=== PATIENT | female | born 1950 | race Asian ===

== ENCOUNTER 2017-05-25 20:13 | Emergency (ER) | payer MEDICARE, MEDICAID ==
[~2017-05-25] VITALS: Ht 149.9 cm; Wt 66.0 kg
[~2017-05-25 20:13] MED LIST: AMLO10TA2 PO; ASPI-621 PO; ATOR10TA9 PO; ATOR40TA78 PO; BENZ100C17 PO; CARV-39 PO; CARV12.52 PO; CARV3.122 PO; CEFD300C37 PO; CINA90TA PO; CLOP75TA PO; DOXY100T PO; FENO145T13 PO; FLUT1BLS INH; FURO-93 PO; GABA-826 PO; INSU100I18 SQ-INSULIN; INSU100I28 SQ-INSULIN; LOSA100T6 PO; LOSA25TA5 PO; MECL12.5 PO; SEVE800T8 PO; VORI200T PO; VORI200T2 PO
[2017-05-25] MEDS ORDERED: SODIUM CHLORIDE FLUSH 10ML SYR IVF ONE (20:30)
[2017-05-25 20:49] LABS: HEMATOCRIT 33.2 % (34.6-47.8); HEMOGLOBIN 11.3 g/dL (11.7-16.4); WHITE BLOOD COUNT 8.5 x10^3/uL (3.4-10)
[2017-05-25 21:01] LABS: ASPARTATE AMINO TRANSFERASE 25 U/L (15-37); BLOOD UREA NITROGEN 27 mg/dL (7-18)
[2017-05-25 21:54] LABS: IS PT STATUS REG ER OR PRE ER? YES
[2017-05-25 23:19] VITALS: BP 106/50
== END 2017-05-25 23:22 | disposition home or self-care (01) ==
LOC: ED 22:00
DX: K80.20 Calculus of gallbladder without cholecystitis without obstruction (principal); I13.2 Hypertensive heart and chronic kidney disease with heart failure and with stage 5 chronic kidney disease, or end stage renal disease; E11.22 Type 2 diabetes mellitus with diabetic chronic kidney disease; N18.6 End stage renal disease; I50.9 Heart failure, unspecified; Z99.2 Dependence on renal dialysis; E11.649 Type 2 diabetes mellitus with hypoglycemia without coma; E11.40 Type 2 diabetes mellitus with diabetic neuropathy, unspecified; I25.10 Atherosclerotic heart disease of native coronary artery without angina pectoris; E66.9 Obesity, unspecified; Z91.011 Allergy to milk products; Z91.040 Latex allergy status
CPT/HCPCS: 36415; 71010; 76700; 80053; 83690; 84484; 85025; 93005; 99285

== ENCOUNTER 2017-09-13 15:56 | Emergency (ER) | payer MEDICARE, MEDICAID ==
[~2017-09-13] VITALS: Ht 149.9 cm; Wt 66.0 kg
[~2017-09-13 15:56] MED LIST changes: +BENZ-17 PO; -BENZ100C17 PO
[2017-09-13 16:40] LABS: HEMATOCRIT 34.1 % (34.6-47.8); WHITE BLOOD COUNT 6.3 x10^3/uL (3.4-10)
[2017-09-13 16:45] LABS: BLOOD UREA NITROGEN 70 mg/dL (7-18)
[2017-09-13 18:35] VITALS: BP 141/69
== END 2017-09-13 18:37 | disposition home or self-care (01) ==
LOC: ED 17:23
DX: R55 Syncope and collapse (principal); I13.2 Hypertensive heart and chronic kidney disease with heart failure and with stage 5 chronic kidney disease, or end stage renal disease; E11.22 Type 2 diabetes mellitus with diabetic chronic kidney disease; N18.6 End stage renal disease; I50.9 Heart failure, unspecified; Z99.2 Dependence on renal dialysis; Z91.040 Latex allergy status
CPT/HCPCS: 36415; 71010; 80048; 82040; 85025; 93005; 99285

== ENCOUNTER 2017-12-07 13:08 | Inpatient (IN) | payer MEDICARE, MEDICAID ==
[~2017-12-07] VITALS: Ht 149.9 cm; Wt 61.1 kg
[2017-12-07] MEDS ORDERED: SODIUM CHLORIDE FLUSH 10ML SYR IVF ONE (13:30)
[2017-12-07] MEDS ORDERED: CEFTRIAXONE PMX 1GM/50ML 50 ML IVPB ONE (13:30)
[2017-12-07] MEDS ORDERED: VANCOMYCIN PER PHARMACY MC ONE (13:30)
[2017-12-07] MEDS ORDERED: VANCOMYCIN 1,200 MG in SODIUM CHLORIDE 0.9% 250 ML IV ONE (14:00)
[2017-12-07 14:41] LABS: BASOPHILS # (AUTO) 0.03 x10^3/uL (0-0.1); BASOPHILS % (AUTO) 0 % (0-1); EOSINOPHILS # (AUTO) 0.08 x10^3/uL (0-0.4); EOSINOPHILS % (AUTO) 1 % (1-7); LYMPHOCYTES # (AUTO) 0.76 x10^3/uL (1-3.4); LYMPHOCYTES % (AUTO) 5 % (22-44); MD NO; MEAN CORPUSCULAR HGB CONC 34.4 g/dL (32.4-35.8); MEAN CORPUSCULAR VOLUME 95.8 fL (80-100); MEAN PLATELET VOLUME 9.2 fL (7.4-10.4); MONOCYTES # (AUTO) 1.04 x10^3/uL (0.2-0.8); MONOCYTES % (AUTO) 7 % (2-9); NEUTROPHILS # (AUTO) 12.82 x10^3/uL (1.8-6.8); NEUTROPHILS % (AUTO) 87 % (42-75); PLATELET COUNT 142 x10^3/uL (130-400); RED CELL DISTRIBUTION WIDTH 14.9 % (9.6-15.2)
[2017-12-07] MEDS ORDERED: PREG50CA PO ×2 (14:42)
[2017-12-07 14:51] LABS: ALBUMIN 3.3 g/dL (3.4-5.0); ANION GAP 13 mmol/L (5-15); CALCIUM 9.4 mg/dL (8.5-10.1); CHLORIDE 94 mmol/L (98-107)
[2017-12-07 14:57] LABS: ALANINE AMINOTRANSFERASE 30 U/L (12-78); ALKALINE PHOSPHATASE 91 U/L (45-117); BILIRUBIN,TOTAL 0.7 mg/dL (0.2-1.0); CREATININE 8.48 mg/dL (0.55-1.02); TOTAL PROTEIN 8.4 g/dL (6.4-8.2); TROPONIN I < 0.015 ng/mL (0.000-0.045)
[2017-12-07] MEDS ORDERED: CEFTRIAXONE PMX 1GM/50ML 50 ML ONE (16:28)
[2017-12-07] MEDS ORDERED: MECLIZINE 12.5 MG TABLET PO PRN (19:30)
[2017-12-07] MEDS ORDERED: POLYETHYLENE GLYCOL 17 GM PACKET PO PRN (19:30)
[2017-12-07] MEDS ORDERED: CEFTRIAXONE PMX 1GM/50ML 50 ML IV SCH (19:30)
[2017-12-07] MEDS ORDERED: ONDANSETRON 2MG/ML, 2ML IVPush PRN (19:30)
[2017-12-07] MEDS ORDERED: BISACODYL 10 MG SUPP PR PRN (19:30)
[2017-12-07 19:47] LABS: HEMOGLOBIN A1C 7.9 % (4.2-6.3)
[2017-12-07 20:00] VITALS: BP 137/65
[2017-12-07] MEDS: INSULIN LISPRO 100 UNITS/ML, PEN MEDIUM DOSE SS SQ-INSULIN SCH (21:00)
[2017-12-07] MEDS ORDERED: TEMPLATE NON-FORMULARY MED. (Insulin Aspart (Novolog) 0 UNITS) SQ-INSULIN SCH (21:00)
[2017-12-07] MEDS: HEPARIN 5,000 UNITS/ML, 1ML SQ SCH (22:16)
[2017-12-07] MEDS: ATORVASTATIN 40 MG TABLET PO SCH (22:17)
[2017-12-07] MEDS: PREGABALIN 25 MG CAPSULE PO SCH (22:17)
[2017-12-07] MEDS: CINACALCET 30 MG TABLET PO SCH (22:17)
[2017-12-07] MEDS: SEVELAMER CARBONATE 800MG TAB PO SCH (22:17)
[2017-12-07 22:50] VITALS: BP 137/65
[2017-12-07] MEDS: SODIUM CHLORIDE FLUSH 10ML SYR IVF SCH (23:30)
[2017-12-07] MEDS: AZITHROMYCIN 500 MG in SODIUM CHLORIDE 0.9% 250 ML IV SCH (23:30)
[2017-12-08] MEDS: GUAIFENESIN/DM 200-20MG, 10ML UDC PO PRN ×2 (00:23→09:10)
[2017-12-08] MEDS: ACETAMINOPHEN 325 MG TABLET PO PRN ×2 (01:22→13:44)
[2017-12-08 01:57] LABS: CULTURE INDICATED? YES; MICROSCOPIC INDICATED
[2017-12-08 02:00] VITALS: BP 124/71
[2017-12-08 02:05] LABS: AMPHETAMINE SCREEN, URINE Negative (Negative); BARBITURATE SCREEN, URINE Negative (Negative); BENZODIAZEPINE SCREEN, URINE Negative (Negative); CANNABINOID SCREEN, URINE Negative (Negative); COCAINE SCREEN, URINE Negative (Negative); METHADONE SCREEN, URINE Negative (Negative); OPIATE SCREEN, URINE Negative (Negative)
[2017-12-08 05:34] LABS: CHLORIDE 96 mmol/L (98-107)
[2017-12-08 05:38] LABS: BASOPHILS # (AUTO) 0.02 x10^3/uL (0-0.1); BASOPHILS % (AUTO) 0 % (0-1); EOSINOPHILS % (AUTO) 0 % (1-7); LYMPHOCYTES # (AUTO) 1.11 x10^3/uL (1-3.4); LYMPHOCYTES % (AUTO) 10 % (22-44); MD NO; MEAN CORPUSCULAR HEMOGLOBIN 33.7 pg (27.0-34.8); MEAN CORPUSCULAR HGB CONC 34.8 g/dL (32.4-35.8); MEAN CORPUSCULAR VOLUME 96.6 fL (80-100); MEAN PLATELET VOLUME 10.2 fL (7.4-10.4); MONOCYTES # (AUTO) 1.04 x10^3/uL (0.2-0.8); MONOCYTES % (AUTO) 9 % (2-9); NEUTROPHILS % (AUTO) 81 % (42-75); PLATELET COUNT 136 x10^3/uL (130-400); RED BLOOD COUNT 2.96 x10^6/uL (3.82-5.3); RED CELL DISTRIBUTION WIDTH 15.5 % (9.6-15.2)
[2017-12-08 05:42] LABS: ALANINE AMINOTRANSFERASE 25 U/L (12-78); ALBUMIN 2.9 g/dL (3.4-5.0); ALKALINE PHOSPHATASE 75 U/L (45-117); ANION GAP 16 mmol/L (5-15); BILIRUBIN,TOTAL 0.7 mg/dL (0.2-1.0); CALCIUM 8.4 mg/dL (8.5-10.1); TOTAL PROTEIN 7.2 g/dL (6.4-8.2)
[2017-12-08] MEDS: HEPARIN 5,000 UNITS/ML, 1ML SQ SCH ×3 (05:50→21:44)
[2017-12-08 08:28] VITALS: BP 107/61
[2017-12-08] MEDS ORDERED: CARVEDILOL 12.5 MG TABLET PO SCH (09:00)
[2017-12-08] MEDS ORDERED: AMLODIPINE 5 MG TABLET PO SCH (09:00)
[2017-12-08] MEDS: SODIUM CHLORIDE FLUSH 10ML SYR IVF SCH ×2 (09:00→21:43)
[2017-12-08] MEDS ORDERED: LOSARTAN 50MG TABLET PO SCH (09:00)
[2017-12-08] MEDS: SENNA/DOCUSATE TABLET PO SCH (09:00)
[2017-12-08] MEDS: SEVELAMER CARBONATE 800MG TAB PO SCH ×3 (09:04→21:44)
[2017-12-08] MEDS: CINACALCET 30 MG TABLET PO SCH ×3 (09:04→21:44)
[2017-12-08] MEDS: FENOFIBRATE 145 MG TABLET PO SCH (09:04)
[2017-12-08] MEDS: PREGABALIN 100 MG CAPSULE PO SCH (09:05)
[2017-12-08] MEDS: INSULIN LISPRO 100 UNITS/ML, PEN MEDIUM DOSE SS SQ-INSULIN SCH ×4 (09:06→21:45)
[2017-12-08 14:22] VITALS: BP 95/56
[2017-12-08] MEDS: CEFTRIAXONE 1,000 MG in SODIUM CHLORIDE 0.9% 50 ML IV SCH (16:30)
[2017-12-08 20:00] VITALS: BP 101/57
[2017-12-08] MEDS: ATORVASTATIN 40 MG TABLET PO SCH (21:44)
[2017-12-08] MEDS: PREGABALIN 25 MG CAPSULE PO SCH (21:44)
[2017-12-08] MEDS: AZITHROMYCIN 500 MG in SODIUM CHLORIDE 0.9% 250 ML IV SCH (23:52)
[2017-12-09] MEDS: ACETAMINOPHEN 325 MG TABLET PO PRN ×2 (01:08→20:50)
[2017-12-09 02:00] VITALS: BP 94/54
[2017-12-09] MEDS: HEPARIN 5,000 UNITS/ML, 1ML SQ SCH ×3 (05:20→20:52)
[2017-12-09 05:59] LABS: ALBUMIN 2.8 g/dL (3.4-5.0); ANION GAP 16 mmol/L (5-15); CALCIUM 6.7 mg/dL (8.5-10.1); CHLORIDE 94 mmol/L (98-107)
[2017-12-09 06:02] LABS: ALANINE AMINOTRANSFERASE 62 U/L (12-78); ALKALINE PHOSPHATASE 80 U/L (45-117); BILIRUBIN,TOTAL 1.1 mg/dL (0.2-1.0)
[2017-12-09] MEDS: INSULIN LISPRO 100 UNITS/ML, PEN MEDIUM DOSE SS SQ-INSULIN SCH ×4 (07:00→20:28)
[2017-12-09 08:01] LABS: BASOPHILS # (AUTO) 0.01 x10^3/uL (0-0.1); BASOPHILS % (AUTO) 0 % (0-1); EOSINOPHILS # (AUTO) 0.18 x10^3/uL (0-0.4); EOSINOPHILS % (AUTO) 2 % (1-7); LYMPHOCYTES % (AUTO) 11 % (22-44); MD NO; MEAN CORPUSCULAR HEMOGLOBIN 32.9 pg (27.0-34.8); MEAN CORPUSCULAR HGB CONC 34.3 g/dL (32.4-35.8); MEAN CORPUSCULAR VOLUME 95.9 fL (80-100); MEAN PLATELET VOLUME 10.2 fL (7.4-10.4); MONOCYTES % (AUTO) 9 % (2-9); NEUTROPHILS % (AUTO) 78 % (42-75); PLATELET COUNT 126 x10^3/uL (130-400); RED BLOOD COUNT 2.78 x10^6/uL (3.82-5.3); RED CELL DISTRIBUTION WIDTH 15.2 % (9.6-15.2)
[2017-12-09] MEDS: PREGABALIN 100 MG CAPSULE PO SCH (09:00)
[2017-12-09] MEDS: SENNA/DOCUSATE TABLET PO SCH (09:00)
[2017-12-09] MEDS: SEVELAMER CARBONATE 800MG TAB PO SCH ×3 (09:00→20:51)
[2017-12-09] MEDS: CINACALCET 30 MG TABLET PO SCH ×3 (09:00→20:51)
[2017-12-09] MEDS: FENOFIBRATE 145 MG TABLET PO SCH (09:00)
[2017-12-09] MEDS: SODIUM CHLORIDE FLUSH 10ML SYR IVF SCH ×2 (09:00→20:50)
[2017-12-09] MEDS: CARVEDILOL 12.5 MG TABLET PO SCH (09:00)
[2017-12-09 15:22] VITALS: BP 120/55
[2017-12-09] MEDS: CEFTRIAXONE 1,000 MG in SODIUM CHLORIDE 0.9% 50 ML IV SCH (16:53)
[2017-12-09 18:39] VITALS: BP 131/63
[2017-12-09] MEDS: ATORVASTATIN 40 MG TABLET PO SCH (20:50)
[2017-12-09] MEDS: PREGABALIN 25 MG CAPSULE PO SCH (20:51)
[2017-12-09] MEDS ORDERED: AMLODIPINE 5 MG TABLET PO SCH (21:00)
[2017-12-09] MEDS ORDERED: LOSARTAN 50MG TABLET PO SCH ×2 (21:00)
[2017-12-09] MEDS: AZITHROMYCIN 500 MG in SODIUM CHLORIDE 0.9% 250 ML IV SCH (23:27)
[2017-12-10 00:33] VITALS: BP 104/56
[2017-12-10] MEDS: GUAIFENESIN/DM 200-20MG, 10ML UDC PO PRN (00:59)
[2017-12-10] MEDS: HEPARIN 5,000 UNITS/ML, 1ML SQ SCH ×2 (05:58→14:00)
[2017-12-10 06:10] LABS: CALCIUM 7.3 mg/dL (8.5-10.1)
[2017-12-10 06:14] LABS: ANION GAP 14 mmol/L (5-15); CALCIUM 7.3 mg/dL (8.5-10.1); CHLORIDE 95 mmol/L (98-107)
[2017-12-10 06:16] LABS: BASOPHILS # (AUTO) 0.02 x10^3/uL (0-0.1); BASOPHILS % (AUTO) 0 % (0-1); EOSINOPHILS # (AUTO) 0.22 x10^3/uL (0-0.4); EOSINOPHILS % (AUTO) 4 % (1-7); LYMPHOCYTES # (AUTO) 0.78 x10^3/uL (1-3.4); LYMPHOCYTES % (AUTO) 13 % (22-44); MD NO; MEAN CORPUSCULAR HEMOGLOBIN 32.5 pg (27.0-34.8); MEAN CORPUSCULAR HGB CONC 34.2 g/dL (32.4-35.8); MEAN CORPUSCULAR VOLUME 95.2 fL (80-100); MEAN PLATELET VOLUME 9.8 fL (7.4-10.4); MONOCYTES # (AUTO) 0.85 x10^3/uL (0.2-0.8); MONOCYTES % (AUTO) 14 % (2-9); NEUTROPHILS # (AUTO) 4.23 x10^3/uL (1.8-6.8); NEUTROPHILS % (AUTO) 69 % (42-75); PLATELET COUNT 143 x10^3/uL (130-400); RED BLOOD COUNT 3.06 x10^6/uL (3.82-5.3); RED CELL DISTRIBUTION WIDTH 14.9 % (9.6-15.2)
[2017-12-10] MEDS ORDERED: ARANESP 60 MCG/ML **ESRD SQ SCH (08:00)
[2017-12-10] MEDS: INSULIN LISPRO 100 UNITS/ML, PEN MEDIUM DOSE SS SQ-INSULIN SCH ×2 (08:12→12:21)
[2017-12-10] MEDS: CINACALCET 30 MG TABLET PO SCH (08:13)
[2017-12-10] MEDS: CARVEDILOL 12.5 MG TABLET PO SCH (08:13)
[2017-12-10] MEDS: PREGABALIN 100 MG CAPSULE PO SCH (08:13)
[2017-12-10] MEDS: FENOFIBRATE 145 MG TABLET PO SCH (08:13)
[2017-12-10] MEDS: SEVELAMER CARBONATE 800MG TAB PO SCH (08:14)
[2017-12-10] MEDS: SENNA/DOCUSATE TABLET PO SCH (08:14)
[2017-12-10] MEDS: SODIUM CHLORIDE FLUSH 10ML SYR IVF SCH (08:14)
[2017-12-10 08:40] LABS: % IRON SATURATION 21 % (20-55); IRON LEVEL 46 mcg/dL (50-170); TOTAL IRON BINDING CAPACITY 224 mcg/dL (250-450)
[2017-12-10 08:56] VITALS: BP 110/70
[2017-12-10] MEDS ORDERED: CEFTRIAXONE 1,000 MG in DEXTROSE 5% 50 ML IV SCH ×2 (09:03→16:30)
[2017-12-10] MEDS ORDERED: CEFD300C37 PO (13:45)
[2017-12-10] MEDS ORDERED: LOSA50TA2 PO (13:58)
[2017-12-10] MEDS ORDERED: CARV12.543 PO (13:58)
[2017-12-10 13:59] VITALS: BP 94/53
== END 2017-12-10 15:00 | disposition home or self-care (01) | DRG 871 ==
LOC: ED 13:34 → EDIP 16:18 → 4WST 18:36
PROVIDERS: ADMIT Internal Medicine; ATTEND Internal Medicine
PROC: 5A1D70Z Performance of Urinary Filtration, Intermittent, Less than 6 Hours Per Day (ICD-10-PCS; principal; 2017-12-09)
DX: A41.9 Sepsis, unspecified organism (principal); J96.01 Acute respiratory failure with hypoxia; I13.2 Hypertensive heart and chronic kidney disease with heart failure and with stage 5 chronic kidney disease, or end stage renal disease; J15.9 Unspecified bacterial pneumonia; E87.2 Acidosis; E11.22 Type 2 diabetes mellitus with diabetic chronic kidney disease; E11.42 Type 2 diabetes mellitus with diabetic polyneuropathy; I50.9 Heart failure, unspecified; E44.1 Mild protein-calorie malnutrition; N25.0 Renal osteodystrophy; N18.6 End stage renal disease; N25.81 Secondary hyperparathyroidism of renal origin; D64.9 Anemia, unspecified; D63.1 Anemia in chronic kidney disease; E78.5 Hyperlipidemia, unspecified; E83.39 Other disorders of phosphorus metabolism; R65.20 Severe sepsis without septic shock; Z99.2 Dependence on renal dialysis; Z68.27 Body mass index [BMI] 27.0-27.9, adult; Z91.040 Latex allergy status; Z91.018 Allergy to other foods; Z79.4 Long term (current) use of insulin; I25.2 Old myocardial infarction
CPT/HCPCS: 36415; 70450; 71045; 80048; 80053; 80307; 81001; 82140; 82306; 82310; 82962; 83036; 83540; 83550; 83605; 83735; 83970; 84100; 84484; 84550; 85025; 86704; 86706; 86803; 87040; 87070; 87086; 87205; 87340; 93005; 99285; J0456; J0696; J0882; J1644; J3370; J1815; J7050

== ENCOUNTER → 2018-02-21 | Outpatient (CLI) | payer MEDICARE, MEDICAID ==
[~2018-02-21] MED LIST changes: +CARV12.543 PO; -FENO145T13 PO; +FENO145T30 PO; +LOSA50TA2 PO; +PREG50CA PO
== END ==
LOC: RAD 10:55
PROVIDERS: ATTEND Family Medicine
DX: I51.7 Cardiomegaly (principal); J18.9 Pneumonia, unspecified organism
CPT/HCPCS: 71046

== ENCOUNTER 2018-07-24 16:00 | Inpatient (IN) | payer MEDICARE, MEDICAID ==
[~2018-07-24] VITALS: Ht 149.9 cm; Wt 64.8 kg
[~2018-07-24 16:00] MED LIST changes: -AMLO10TA2 PO; +AMLO10TA6 PO; -ASPI-621 PO; +ASPI81TA45 PO; -LOSA100T6 PO; +LOSA100T7 PO; -LOSA25TA5 PO; +LOSA25TA6 PO
[2018-07-24] MEDS ORDERED: methylPREDNISolone SOD SUCC 125 MG/2 ML IVP ONE (16:30)
[2018-07-24] MEDS ORDERED: methylPREDNISolone SOD SUCC 125 MG/2 ML ONE (16:33)
[2018-07-24 17:00] LABS: BASOPHILS # (AUTO) 0.02 x10^3/uL (0-0.1); BASOPHILS % (AUTO) 0 % (0-1); EOSINOPHILS # (AUTO) 0.41 x10^3/uL (0-0.4); EOSINOPHILS % (AUTO) 4 % (1-7); LYMPHOCYTES # (AUTO) 1.28 x10^3/uL (1-3.4); LYMPHOCYTES % (AUTO) 11 % (22-44); MD NO; MEAN CORPUSCULAR HEMOGLOBIN 34.4 pg (27.0-34.8); MEAN CORPUSCULAR HGB CONC 34.5 g/dL (32.4-35.8); MEAN CORPUSCULAR VOLUME 99.8 fL (80-100); MEAN PLATELET VOLUME 8.1 fL (7.4-10.4); MONOCYTES # (AUTO) 1.07 x10^3/uL (0.2-0.8); MONOCYTES % (AUTO) 9 % (2-9); NEUTROPHILS # (AUTO) 9.13 x10^3/uL (1.8-6.8); NEUTROPHILS % (AUTO) 77 % (42-75); PLATELET COUNT 209 x10^3/uL (130-400); RED BLOOD COUNT 3.13 x10^6/uL (3.82-5.3); RED CELL DISTRIBUTION WIDTH 14.4 % (9.6-15.2)
[2018-07-24 17:10] LABS: ALANINE AMINOTRANSFERASE 51 U/L (12-78); ALBUMIN 3.2 g/dL (3.4-5.0); ANION GAP 11 mmol/L (5-15); CALCIUM 9.8 mg/dL (8.5-10.1); CHLORIDE 94 mmol/L (98-107); CREATININE 5.16 mg/dL (0.55-1.02)
[2018-07-24 17:14] LABS: ALKALINE PHOSPHATASE 97 U/L (45-117); BILIRUBIN,TOTAL 0.6 mg/dL (0.2-1.0); TOTAL PROTEIN 8.8 g/dL (6.4-8.2)
[2018-07-24] MEDS ORDERED: GABA300C10 PO (18:27)
[2018-07-24] MEDS ORDERED: EMLA CREAM (18:27)
[2018-07-24] MEDS ORDERED: DIAZ2TAB3 PO (18:27)
[2018-07-24] MEDS ORDERED: CALC200T3 PO (18:27)
[2018-07-24] MEDS ORDERED: INSU100V8 SQ (18:27)
[2018-07-24] MEDS ORDERED: FOLI0.8T33 PO (18:27)
[2018-07-24] MEDS ORDERED: ERGO500017 PO (18:27)
[2018-07-24] MEDS ORDERED: AMLO10TA4 PO (18:27)
[2018-07-24] MEDS ORDERED: GUAIFENESIN/DM 200-20MG, 10ML UDC PO PRN (18:30)
[2018-07-24] MEDS ORDERED: MECLIZINE 12.5 MG TABLET PO PRN (18:30)
[2018-07-24] MEDS ORDERED: CEFTRIAXONE 1,000 MG in SODIUM CHLORIDE 0.9% 50 ML IVPB ONE (18:30)
[2018-07-24] MEDS ORDERED: POLYETHYLENE GLYCOL 17 GM PACKET PO PRN (18:30)
[2018-07-24] MEDS ORDERED: ONDANSETRON ODT 4 MG PO PRN (18:30)
[2018-07-24] MEDS ORDERED: SODIUM CHLORIDE FLUSH 10ML SYR IVF PRN (18:30)
[2018-07-24] MEDS ORDERED: BISACODYL 10 MG SUPP PR PRN (18:30)
[2018-07-24] MEDS ORDERED: CEFTRIAXONE PMX 1GM/50ML 50 ML ONE (18:31)
[2018-07-24 18:55] VITALS: BP 151/76
[2018-07-24 19:29] LABS: HEMOGLOBIN A1C 7.4 % (4.2-6.3)
[2018-07-24 19:39] VITALS: BP 151/76
[2018-07-24] MEDS: AZITHROMYCIN 500 MG in SODIUM CHLORIDE 0.9% 250 ML IV SCH (20:55)
[2018-07-24] MEDS: SODIUM CHLORIDE FLUSH 10ML SYR IVF SCH (20:56)
[2018-07-24] MEDS: LOSARTAN 50MG TABLET PO SCH (20:57)
[2018-07-24] MEDS: CINACALCET 30 MG TABLET PO SCH (20:58)
[2018-07-24] MEDS: ATORVASTATIN 40 MG TABLET PO SCH (20:59)
[2018-07-24] MEDS: HEPARIN 5,000 UNITS/ML, 1ML SQ SCH (20:59)
[2018-07-24] MEDS ORDERED: PREGABALIN 25 MG CAPSULE PO SCH (21:00)
[2018-07-24] MEDS ORDERED: TEMPLATE NON-FORMULARY MED. (Insulin Aspart (Novolog) 0 UNITS) SQ-INSULIN SCH (21:00)
[2018-07-24 21:01] LABS: RAPID INFLUENZA A Negative (Negative); RAPID INFLUENZA B Negative (Negative)
[2018-07-24] MEDS: INSULIN LISPRO 100 UNITS/ML, PEN MEDIUM DOSE SS SQ-INSULIN SCH (21:20)
[2018-07-25] MEDS: ACETAMINOPHEN 325 MG TABLET PO PRN (00:44)
[2018-07-25 01:22] VITALS: BP 119/67
[2018-07-25] MEDS: HEPARIN 5,000 UNITS/ML, 1ML SQ SCH ×3 (05:29→20:37)
[2018-07-25 06:33] LABS: BASOPHILS % (AUTO) 0 % (0-1); EOSINOPHILS % (AUTO) 0 % (1-7); LYMPHOCYTES % (AUTO) 6 % (22-44); MD NO; MEAN CORPUSCULAR HEMOGLOBIN 34.3 pg (27.0-34.8); MEAN CORPUSCULAR HGB CONC 34.6 g/dL (32.4-35.8); MEAN CORPUSCULAR VOLUME 99.2 fL (80-100); MEAN PLATELET VOLUME 8.6 fL (7.4-10.4); MONOCYTES # (AUTO) 0.19 x10^3/uL (0.2-0.8); MONOCYTES % (AUTO) 2 % (2-9); NEUTROPHILS # (AUTO) 8.64 x10^3/uL (1.8-6.8); NEUTROPHILS % (AUTO) 92 % (42-75); PLATELET COUNT 215 x10^3/uL (130-400); RED BLOOD COUNT 3.18 x10^6/uL (3.82-5.3); RED CELL DISTRIBUTION WIDTH 14.2 % (9.6-15.2)
[2018-07-25 06:38] LABS: ALANINE AMINOTRANSFERASE 43 U/L (12-78); ANION GAP 11 mmol/L (5-15); CALCIUM 8.9 mg/dL (8.5-10.1); CHLORIDE 92 mmol/L (98-107); CREATININE 7.37 mg/dL (0.55-1.02)
[2018-07-25 06:42] LABS: ALKALINE PHOSPHATASE 92 U/L (45-117); BILIRUBIN,TOTAL 0.6 mg/dL (0.2-1.0); TOTAL PROTEIN 8.4 g/dL (6.4-8.2); TROPONIN I 0.086 ng/mL (0.000-0.045)
[2018-07-25 07:29] VITALS: BP 109/63
[2018-07-25] MEDS: SEVELAMER CARBONATE 800MG TAB PO SCH ×3 (08:00→17:00)
[2018-07-25] MEDS: FENOFIBRATE 145 MG TABLET PO SCH (08:07)
[2018-07-25] MEDS: SENNA/DOCUSATE TABLET PO SCH (08:07)
[2018-07-25] MEDS: CARVEDILOL 3.125 MG TABLET PO SCH (08:07)
[2018-07-25] MEDS: CINACALCET 30 MG TABLET PO SCH ×2 (08:07→20:38)
[2018-07-25] MEDS: INSULIN LISPRO 100 UNITS/ML, PEN MEDIUM DOSE SS SQ-INSULIN SCH ×4 (08:08→20:58)
[2018-07-25] MEDS: SODIUM CHLORIDE FLUSH 10ML SYR IVF SCH ×2 (08:08→20:37)
[2018-07-25] MEDS ORDERED: PREGABALIN 100 MG CAPSULE PO SCH (09:00)
[2018-07-25] MEDS: GABAPENTIN 100 MG CAPSULE PO SCH ×3 (09:28→20:39)
[2018-07-25 11:49] LABS: TROPONIN I 0.059 ng/mL (0.000-0.045)
[2018-07-25 15:19] VITALS: BP 122/61
[2018-07-25] MEDS ORDERED: GABAPENTIN 100 MG PO SCH (16:00)
[2018-07-25] MEDS ORDERED: ERGOCALCIFEROL 50,000 UNIT CAPSULE PO SCH (16:00)
[2018-07-25] MEDS: CEFTRIAXONE PMX 1GM/50ML 50 ML IV SCH (18:09)
[2018-07-25] MEDS: AZITHROMYCIN 500 MG in SODIUM CHLORIDE 0.9% 250 ML IV SCH (20:37)
[2018-07-25] MEDS: ATORVASTATIN 40 MG TABLET PO SCH (20:38)
[2018-07-25 20:55] VITALS: BP_SYST 105; BP_SYST 111; BP_DIAS 55; BP_DIAS 68
[2018-07-25] MEDS: LOSARTAN 50MG TABLET PO SCH (20:57)
[2018-07-26 02:17] VITALS: BP 110/66
[2018-07-26] MEDS: HEPARIN 5,000 UNITS/ML, 1ML SQ SCH ×3 (04:54→21:21)
[2018-07-26 05:53] LABS: BASOPHILS # (AUTO) 0.05 x10^3/uL (0-0.1); BASOPHILS % (AUTO) 1 % (0-1); EOSINOPHILS # (AUTO) 0.14 x10^3/uL (0-0.4); EOSINOPHILS % (AUTO) 2 % (1-7); LYMPHOCYTES # (AUTO) 1.57 x10^3/uL (1-3.4); LYMPHOCYTES % (AUTO) 17 % (22-44); MD NO; MEAN CORPUSCULAR HEMOGLOBIN 34.2 pg (27.0-34.8); MEAN CORPUSCULAR HGB CONC 34.1 g/dL (32.4-35.8); MEAN CORPUSCULAR VOLUME 100.2 fL (80-100); MEAN PLATELET VOLUME 8.2 fL (7.4-10.4); MONOCYTES % (AUTO) 10 % (2-9); NEUTROPHILS # (AUTO) 6.86 x10^3/uL (1.8-6.8); NEUTROPHILS % (AUTO) 72 % (42-75); PLATELET COUNT 242 x10^3/uL (130-400); RED CELL DISTRIBUTION WIDTH 14.5 % (9.6-15.2)
[2018-07-26 06:00] LABS: ANION GAP 15 mmol/L (5-15); CALCIUM 8.9 mg/dL (8.5-10.1); CHLORIDE 96 mmol/L (98-107)
[2018-07-26 06:07] LABS: % IRON SATURATION 35 % (20-55); ALANINE AMINOTRANSFERASE 40 U/L (12-78); ALKALINE PHOSPHATASE 84 U/L (45-117); BILIRUBIN,TOTAL 0.4 mg/dL (0.2-1.0); CREATININE 5.43 mg/dL (0.55-1.02); IRON LEVEL 77 mcg/dL (50-170); TOTAL IRON BINDING CAPACITY 218 mcg/dL (250-450); TOTAL PROTEIN 8.2 g/dL (6.4-8.2)
[2018-07-26 07:13] VITALS: BP 93/56
[2018-07-26] MEDS: SEVELAMER CARBONATE 800MG TAB PO SCH ×3 (08:00→16:24)
[2018-07-26] MEDS: SENNA/DOCUSATE TABLET PO SCH (08:22)
[2018-07-26] MEDS: INSULIN LISPRO 100 UNITS/ML, PEN MEDIUM DOSE SS SQ-INSULIN SCH ×4 (08:22→21:22)
[2018-07-26] MEDS: CALCIUM CARBONATE 500 MG TABLET PO SCH (08:22)
[2018-07-26] MEDS: CINACALCET 30 MG TABLET PO SCH ×2 (08:22→21:19)
[2018-07-26] MEDS: FENOFIBRATE 145 MG TABLET PO SCH (08:22)
[2018-07-26] MEDS: DIAZEPAM 2 MG TABLET PO SCH (08:22)
[2018-07-26] MEDS: GABAPENTIN 100 MG CAPSULE PO SCH ×3 (08:22→21:20)
[2018-07-26] MEDS: CARVEDILOL 3.125 MG TABLET PO SCH (08:23)
[2018-07-26] MEDS: SODIUM CHLORIDE FLUSH 10ML SYR IVF SCH ×3 (08:23→23:54)
[2018-07-26] MEDS ORDERED: AMLODIPINE 10 MG TAB PO SCH (09:00)
[2018-07-26] MEDS: ACETAMINOPHEN 325 MG TABLET PO PRN (12:29)
[2018-07-26 13:09] VITALS: BP 98/59
[2018-07-26] MEDS ORDERED: ALBUMIN HUMAN 25% 50 ML IV PRN (19:00)
[2018-07-26] MEDS ORDERED: ALBUMIN HUMAN 25% 100 ML IV PRN (19:00)
[2018-07-26 19:31] VITALS: BP 107/68
[2018-07-26] MEDS: LOSARTAN 50MG TABLET PO SCH (21:20)
[2018-07-26] MEDS: ATORVASTATIN 40 MG TABLET PO SCH (21:20)
[2018-07-26] MEDS: INSULIN GLARGINE 100 UNITS/ML, PEN SQ-INSULIN SCH (21:21)
[2018-07-26] MEDS: CEFTRIAXONE PMX 1GM/50ML 50 ML IV SCH (23:53)
[2018-07-27] MEDS: AZITHROMYCIN 500 MG in SODIUM CHLORIDE 0.9% 250 ML IV SCH (00:33)
[2018-07-27 02:00] VITALS: BP 91/62
[2018-07-27] MEDS: HEPARIN 5,000 UNITS/ML, 1ML SQ SCH ×3 (05:32→22:05)
[2018-07-27 05:55] LABS: CALCIUM 8.9 mg/dL (8.5-10.1); CHLORIDE 98 mmol/L (98-107)
[2018-07-27 05:58] LABS: ALBUMIN 2.9 g/dL (3.4-5.0); ANION GAP 15 mmol/L (5-15); CREATININE 5.22 mg/dL (0.55-1.02)
[2018-07-27 06:13] LABS: BASOPHILS # (AUTO) 0.03 x10^3/uL (0-0.1); BASOPHILS % (AUTO) 1 % (0-1); EOSINOPHILS # (AUTO) 0.23 x10^3/uL (0-0.4); EOSINOPHILS % (AUTO) 4 % (1-7); LYMPHOCYTES # (AUTO) 1.38 x10^3/uL (1-3.4); LYMPHOCYTES % (AUTO) 21 % (22-44); MD NO; MEAN CORPUSCULAR HEMOGLOBIN 34.7 pg (27.0-34.8); MEAN CORPUSCULAR HGB CONC 35.1 g/dL (32.4-35.8); MEAN CORPUSCULAR VOLUME 98.9 fL (80-100); MEAN PLATELET VOLUME 8.3 fL (7.4-10.4); MONOCYTES # (AUTO) 0.91 x10^3/uL (0.2-0.8); MONOCYTES % (AUTO) 14 % (2-9); NEUTROPHILS # (AUTO) 3.89 x10^3/uL (1.8-6.8); NEUTROPHILS % (AUTO) 60 % (42-75); PLATELET COUNT 238 x10^3/uL (130-400); RED BLOOD COUNT 3.14 x10^6/uL (3.82-5.3); RED CELL DISTRIBUTION WIDTH 14.5 % (9.6-15.2)
[2018-07-27] MEDS: INSULIN LISPRO 100 UNITS/ML, PEN MEDIUM DOSE SS SQ-INSULIN SCH ×4 (07:00→20:43)
[2018-07-27 08:07] VITALS: BP 102/56
[2018-07-27] MEDS: SEVELAMER CARBONATE 800MG TAB PO SCH ×3 (08:41→17:00)
[2018-07-27] MEDS: CARVEDILOL 3.125 MG TABLET PO SCH (09:00)
[2018-07-27] MEDS: SODIUM CHLORIDE FLUSH 10ML SYR IVF SCH ×2 (09:00→20:26)
[2018-07-27] MEDS: SENNA/DOCUSATE TABLET PO SCH ×2 (09:00→12:50)
[2018-07-27] MEDS: CINACALCET 30 MG TABLET PO SCH ×2 (12:49→20:25)
[2018-07-27] MEDS: CALCIUM CARBONATE 500 MG TABLET PO SCH (12:50)
[2018-07-27] MEDS: DIAZEPAM 2 MG TABLET PO SCH (12:51)
[2018-07-27] MEDS: GABAPENTIN 100 MG CAPSULE PO SCH ×3 (12:51→20:26)
[2018-07-27] MEDS: FENOFIBRATE 145 MG TABLET PO SCH (12:52)
[2018-07-27 14:30] VITALS: BP 100/69
[2018-07-27 20:15] VITALS: BP 94/38
[2018-07-27] MEDS: LOSARTAN 25MG TABLET PO SCH ×2 (20:25→20:29)
[2018-07-27] MEDS: ATORVASTATIN 40 MG TABLET PO SCH (20:25)
[2018-07-27] MEDS: INSULIN GLARGINE 100 UNITS/ML, PEN SQ-INSULIN SCH (20:44)
[2018-07-27 20:47] VITALS: BP 109/61
[2018-07-27] MEDS: CEFTRIAXONE PMX 1GM/50ML 50 ML IV SCH (23:53)
[2018-07-28] MEDS: AZITHROMYCIN 500 MG in SODIUM CHLORIDE 0.9% 250 ML IV SCH (00:44)
[2018-07-28 02:40] VITALS: BP 105/54
[2018-07-28 04:56] LABS: BASOPHILS # (AUTO) 0.03 x10^3/uL (0-0.1); BASOPHILS % (AUTO) 0 % (0-1); EOSINOPHILS # (AUTO) 0.21 x10^3/uL (0-0.4); EOSINOPHILS % (AUTO) 2 % (1-7); LYMPHOCYTES # (AUTO) 1.79 x10^3/uL (1-3.4); LYMPHOCYTES % (AUTO) 19 % (22-44); MD NO; MEAN CORPUSCULAR HEMOGLOBIN 34.8 pg (27.0-34.8); MEAN CORPUSCULAR HGB CONC 34.7 g/dL (32.4-35.8); MEAN CORPUSCULAR VOLUME 100.3 fL (80-100); MEAN PLATELET VOLUME 8.3 fL (7.4-10.4); MONOCYTES # (AUTO) 1.31 x10^3/uL (0.2-0.8); MONOCYTES % (AUTO) 14 % (2-9); NEUTROPHILS # (AUTO) 6.04 x10^3/uL (1.8-6.8); NEUTROPHILS % (AUTO) 65 % (42-75); PLATELET COUNT 279 x10^3/uL (130-400); RED BLOOD COUNT 3.45 x10^6/uL (3.82-5.3); RED CELL DISTRIBUTION WIDTH 14.2 % (9.6-15.2)
[2018-07-28 05:00] LABS: ALBUMIN 3.6 g/dL (3.4-5.0); ANION GAP 12 mmol/L (5-15); CHLORIDE 91 mmol/L (98-107); CREATININE 5.08 mg/dL (0.55-1.02)
[2018-07-28] MEDS: HEPARIN 5,000 UNITS/ML, 1ML SQ SCH ×2 (05:57→14:00)
[2018-07-28] MEDS: SEVELAMER CARBONATE 800MG TAB PO SCH ×3 (08:00→17:00)
[2018-07-28] MEDS: INSULIN LISPRO 100 UNITS/ML, PEN MEDIUM DOSE SS SQ-INSULIN SCH ×3 (08:05→16:00)
[2018-07-28] MEDS: GABAPENTIN 100 MG CAPSULE PO SCH (08:05)
[2018-07-28] MEDS: SODIUM CHLORIDE FLUSH 10ML SYR IVF SCH (08:06)
[2018-07-28] MEDS: SENNA/DOCUSATE TABLET PO SCH (08:06)
[2018-07-28] MEDS: CARVEDILOL 3.125 MG TABLET PO SCH (08:06)
[2018-07-28] MEDS: CALCIUM CARBONATE 500 MG TABLET PO SCH (08:07)
[2018-07-28] MEDS: CINACALCET 30 MG TABLET PO SCH (08:07)
[2018-07-28] MEDS: FENOFIBRATE 145 MG TABLET PO SCH (08:08)
[2018-07-28] MEDS: DIAZEPAM 2 MG TABLET PO SCH (08:08)
[2018-07-28 08:30] VITALS: BP 103/71
== END 2018-07-28 21:21 | disposition left against medical advice (07) | DRG 871 ==
LOC: ED 17:15 → EDIP 18:33 → 4WST 18:41
PROVIDERS: ADMIT Emergency Medicine; ATTEND Emergency Medicine
PROC: 5A1D70Z Performance of Urinary Filtration, Intermittent, Less than 6 Hours Per Day (ICD-10-PCS; 2018-07-25)
PROC: 5A1D70Z Performance of Urinary Filtration, Intermittent, Less than 6 Hours Per Day (ICD-10-PCS; 2018-07-26)
PROC: 5A1D70Z Performance of Urinary Filtration, Intermittent, Less than 6 Hours Per Day (ICD-10-PCS; 2018-07-27)
PROC: 5A1D70Z Performance of Urinary Filtration, Intermittent, Less than 6 Hours Per Day (ICD-10-PCS; principal; 2018-07-28)
DX: A41.9 Sepsis, unspecified organism (principal); J96.01 Acute respiratory failure with hypoxia; N18.6 End stage renal disease; I50.23 Acute on chronic systolic (congestive) heart failure; I13.2 Hypertensive heart and chronic kidney disease with heart failure and with stage 5 chronic kidney disease, or end stage renal disease; E44.1 Mild protein-calorie malnutrition; E87.1 Hypo-osmolality and hyponatremia; D63.1 Anemia in chronic kidney disease; E11.21 Type 2 diabetes mellitus with diabetic nephropathy; E11.22 Type 2 diabetes mellitus with diabetic chronic kidney disease; E11.40 Type 2 diabetes mellitus with diabetic neuropathy, unspecified; E11.65 Type 2 diabetes mellitus with hyperglycemia; E78.5 Hyperlipidemia, unspecified; E87.5 Hyperkalemia; I25.10 Atherosclerotic heart disease of native coronary artery without angina pectoris; N25.0 Renal osteodystrophy; Z99.2 Dependence on renal dialysis; Z68.28 Body mass index [BMI] 28.0-28.9, adult; Z79.4 Long term (current) use of insulin
CPT/HCPCS: 36415; 71045; 80053; 80069; 82306; 82728; 82962; 83036; 83540; 83550; 83605; 83735; 83880; 83970; 84100; 84145; 84484; 84550; 85025; 87040; 87205; 87400; 93005; 93306; 96374; 99285; G0378; J0456; J0696; J1644; P9047; J1815; J2930; J7050

== ENCOUNTER 2020-10-13 15:02 | Emergency (ER) | payer MEDICARE, MEDICAID ==
[~2020-10-13] VITALS: Ht 157.5 cm; Wt 65.0 kg
[~2020-10-13 15:02] MED LIST changes: +AMLO-211 PO; +AMLO10TA4 PO; -AMLO10TA6 PO; +CALC200T3 PO; +DIAZ2TAB3 PO; +EMLA CREAM; +ERGO500017 PO; +FENO145T19 PO; -FENO145T30 PO; +FOLI0.8T33 PO; +GABA300C10 PO; +INSU100V8 SQ; +LOSA100T14 PO; -LOSA100T7 PO; +LOSA25TA25 PO; -LOSA25TA6 PO
--- NOTE | 2020-10-13 15:12 | NUR ---
BEDSIDE REPORT FROM JOSEPH HANNAH.
[2020-10-13 16:04] LABS: BASOPHILS % (AUTO) 1 % (0-1); EOSINOPHILS % (AUTO) 4 % (1-7); LYMPHOCYTES % (AUTO) 7 % (22-44); MEAN CORPUSCULAR HEMOGLOBIN 31.8 pg (27.0-34.8); MEAN CORPUSCULAR HGB CONC 33.5 g/dL (32.4-35.8); MEAN PLATELET VOLUME 8.5 fL (7.4-10.4); MONOCYTES % (AUTO) 9 % (2-9); NEUTROPHILS % (AUTO) 79 % (42-75); PLATELET COUNT 255 x10^3/uL (130-400); RED BLOOD COUNT 2.85 x10^6/uL (3.82-5.3)
--- NOTE | 2020-10-13 16:09 | NUR ---
PT SLEEPING INTERMITTENTLY NAD NOTED, VSS. FALL PRECAUTIONS IN PLACE.
[2020-10-13 16:30] LABS: MD SCAN
[2020-10-13 17:02] LABS: ALBUMIN 3.1 g/dL (3.4-5.0); ANION GAP 7 mmol/L (5-15); CALCIUM 9.5 mg/dL (8.5-10.1); CHLORIDE 100 mmol/L (98-107)
[2020-10-13 17:05] LABS: ALANINE AMINOTRANSFERASE 31 U/L (12-78); ALKALINE PHOSPHATASE 116 U/L (45-117); BILIRUBIN,TOTAL 0.6 mg/dL (0.2-1.0); CREATININE 3.77 mg/dL (0.55-1.02); TOTAL PROTEIN 7.7 g/dL (6.4-8.2)
[2020-10-13] MEDS ORDERED: OMNIPAQUE 350 MG/ML, 75ML BOTTLE ONE (17:45)
--- NOTE | 2020-10-13 17:48 | NUR ---
BREAK RN: PT RTD FROM RADIOLOGY. REPOSITIONED AND HOB UP 45 DEGREES. CRACKERS AND JUICE SET UP AND PT EATING W/O DIFFICULTY
[2020-10-13 18:02] LABS: INTERNATIONAL NORMALIZED RATIO 0.99 (0.93-1.1); PROTHROMBIN TIME 10.5 Seconds (9.6-11.5)
[2020-10-13 19:50] VITALS: BP 100/70
== END 2020-10-13 20:06 | disposition home or self-care (01) ==
LOC: ED 19:12
DX: R22.0 Localized swelling, mass and lump, head (principal); R07.9 Chest pain, unspecified; I11.0 Hypertensive heart disease with heart failure; I50.9 Heart failure, unspecified
CPT/HCPCS: 36415; 71045; 71260; 80053; 85025; 85610; 85730; 99285; Q9967

== ENCOUNTER 2021-03-20 16:39 | Emergency (ER) | payer MEDICARE, MEDICAID ==
[~2021-03-20] VITALS: Ht 149.9 cm; Wt 62.7 kg
[~2021-03-20 16:39] MED LIST changes: -VORI200T2 PO; +VORI200T3 PO
--- NOTE | 2021-03-20 17:10 | NUR ---
BIB [facility]- Pt c/o LLQ abd pain after having dialysis today. Pt denies nausea, reports normal BM this morning. Pt reports that she does not make urine. Pt able to position herself for comfort in bed. Continuous oxygen and BP Monitors applied, all safety measures observed.
--- NOTE | 2021-03-20 17:29 | NUR ---
Pt to CT via [facility].
--- NOTE | 2021-03-20 17:55 | NUR ---
Pt back from CT, resting in bed, MARVINN.
[2021-03-20 18:22] LABS: CHLORIDE 100 mmol/L (98-107)
[2021-03-20 18:25] LABS: ALBUMIN 3.3 g/dL (3.4-5.0); ANION GAP 9 mmol/L (5-15)
[2021-03-20 18:26] LABS: BASOPHILS % (AUTO) 0 % (0-1); EOSINOPHILS % (AUTO) 8 % (1-7); LYMPHOCYTES % (AUTO) 9 % (22-44); MEAN CORPUSCULAR HEMOGLOBIN 32.2 pg (27.0-34.8); MEAN CORPUSCULAR HGB CONC 35.2 g/dL (32.4-35.8); MEAN PLATELET VOLUME 7.8 fL (7.4-10.4); MONOCYTES % (AUTO) 10 % (2-9); NEUTROPHILS % (AUTO) 72 % (42-75); PLATELET COUNT 203 x10^3/uL (130-400); RED BLOOD COUNT 2.88 x10^6/uL (3.82-5.3); RED CELL DISTRIBUTION WIDTH 16.1 % (9.6-15.2)
[2021-03-20 18:30] LABS: ALANINE AMINOTRANSFERASE 128 U/L (12-78); ALKALINE PHOSPHATASE 165 U/L (45-117); BILIRUBIN,TOTAL 0.6 mg/dL (0.2-1.0); TOTAL PROTEIN 7.7 g/dL (6.4-8.2)
--- NOTE | 2021-03-20 18:59 | NUR ---
RECEIVED REPORT FROM BRIELLE TORRES
[2021-03-20 19:47] VITALS: BP 133/54
--- NOTE | 2021-03-20 19:47 | NUR ---
TASK RN: Patient given discharge instructions and they have confirmed that they understand the instructions. Patient ambulatory with personal cane, pt to d/c desk via wheelchair. Taxi voucher provided upon d/c
== END 2021-03-20 19:50 | disposition home or self-care (01) ==
LOC: ED 18:53
DX: R10.32 Left lower quadrant pain (principal); I11.0 Hypertensive heart disease with heart failure; I50.9 Heart failure, unspecified; E11.65 Type 2 diabetes mellitus with hyperglycemia; Z91.040 Latex allergy status
CPT/HCPCS: 36415; 74176; 80053; 83690; 85025; 99284